=== PATIENT | male | born 1995 | race Caucasian/White ===

== ENCOUNTER 2016-07-01 05:17 | Day surgery (SDC) | payer OTHER ==
[~2016-07-01 05:17] MED LIST: ZANAFLEX 4 MG TA4 MG PO; [UNRECOGNIZED DRUG - REMARK]
== END 2016-07-01 09:38 | disposition home or self-care (01) ==
LOC: SDC 05:17
PROVIDERS: Orthopaedic Surgery
PROC: 3E0S3BZ Introduction of Anesthetic Agent into Epidural Space, Percutaneous Approach (ICD-10-PCS; 2016-07-01)
PROC: 3E0S33Z Introduction of Anti-inflammatory into Epidural Space, Percutaneous Approach (ICD-10-PCS; principal; 2016-07-01 07:30)
DX: M54.17 Radiculopathy, lumbosacral region (principal); Z88.1 Allergy status to other antibiotic agents; Z88.8 Allergy status to other drugs, medicaments and biological substances; Z79.899 Other long term (current) drug therapy
CPT/HCPCS: J1040; J2250; J3010; Q9967